=== PATIENT | male | born 1980 | race Caucasian/White ===

== ENCOUNTER → 2020-04-14 | Outpatient (CLI) | payer OTHER ==
[~2020-04-14] MED LIST: IBUP400 PO; OXYC5 PO; RANI150 PO
== END | disposition home or self-care (01) ==
LOC: LAB 12:04 → LAB SHORT 12:04
DX: D49.2 Neoplasm of unspecified behavior of bone, soft tissue, and skin (principal)
CPT/HCPCS: 88304; 88305